=== PATIENT | female | born 1945 | race Asian ===

== ENCOUNTER 2017-08-02 09:38 | Emergency (ER) | payer OTHER ==
[2017-08-02 10:48] VITALS: BP 150/80
== END 2017-08-02 10:51 | disposition home or self-care (01) ==
LOC: ED 09:38
DX: S00.03XA Contusion of scalp, initial encounter (principal); I10 Essential (primary) hypertension; E11.9 Type 2 diabetes mellitus without complications; W06.XXXA Fall from bed, initial encounter; Y93.89 Activity, other specified; Y99.8 Other external cause status; Y92.89 Other specified places as the place of occurrence of the external cause